=== PATIENT | female | born 1940 | race Caucasian/White ===

== ENCOUNTER 2018-03-07 12:57 | Emergency (ER) | payer OTHER ==
[2018-03-07 13:18] VITALS: TEMP 97.9; BMI 39.6
--- NOTE | 2018-03-07 13:24 | PDOC ---
History of Present Illness - General Chief Complaint: Wound Stated Complaint: left hand cellulitis Time Seen by Provider: 03/07/18 13:24 History Source: Patient Exam Limitations: No Limitations - History of Present Illness Initial Comments: 03/07/18 13:35 This is a 77 year old female with a history of DMII, excema on Remacade, who presents with a one week history of worsening left hand redness, swelling, pain. Patient bumper her left hand/thumb area while moving a box last week, which became bruised and swollen. Patient went to [facility] and was prescribed keflex, now on day 6. She now has increased pain, worsening erythema and wrist swelling. She denies fever, chills, skin breakdown. She denies skin infections or MRSA history. PMH: DMII PSH: none Allergies; percocet 03/07/18 14:36 03/07/18 15:56 Past History - Past Medical History Allergies/Adverse Reactions: Allergies Allergy/AdvReac Type Severity Reaction Status Date / Time acetaminophen [From Percocet] Allergy Mild Rash Verified 03/07/18 12:59 oxycodone [From Percocet] Allergy Mild Rash Verified 03/07/18 12:59 Home Medications: Ambulatory Orders Aspirin 81 mg PO DAILY 03/07/18 Calcium Carbonate/Vitamin D3 [Calcium 500 + Vit D Caplet] 1,000 each PO DAILY Cephalexin [Keflex] 500 mg PO TID 03/07/18 Cetirizine HCl [Zyrtec -] 10 mg PO HS 03/07/18 Cholecalciferol (Vitamin D3) [Vitamin D] 2,000 unit PO DAILY 03/07/18 Clindamycin [Cleocin -] 600 mg PO Q8H 7 Days #21 capsule 03/07/18 Fenofibrate Nanocrystallized [Fenofibrate] 145 mg PO HS 03/07/18 Folic Acid 1 mg PO DAILY 03/07/18 Infliximab [Remicade 100MG Vial] 100 mg IV ASDIR 03/07/18 Losartan Potassium 50 mg PO HS 03/07/18 Methotrexate [Mexate -] 2.5 mg PO WEEKLY 03/07/18 Multivit-Min/Iron/Folic/Lutein [Centrum Silver Women Tablet] 1 each PO DAILY 03/14 [place]-3S/Dha/Epa/Fish Oil [Fish Oil 1,200 mg Softgel] 1 each PO DAILY 03/07/18 Prevagen 1 tab 03/07/18 Pyridoxine HCl (B-6) [Vitamin B6] 100 mg PO ASDIR 03/07/18 Ubidecarenone [Coq-10] 200 mg PO DAILY 03/07/18 metFORMIN XR [Glucophage *Xr* -] 500 mg PO BID 03/07/18 COPD: No Diabetes: Yes HTN: Yes Hypercholesterolemia: Yes Other medical history: psoriasis - Suicide/Smoking/Psychosocial Hx Smoking History: Former smoker Have you smoked in the past 12 months: No If you are a former smoker, when did you quit?: 31 years ago Information on smoking cessation initiated: No Hx Alcohol Use: No Drug/Substance Use Hx: No Substance Use Type: None Review of Systems - Review of Systems Able to Perform ROS?: Yes Is the patient limited Yi proficient: No Constitutional: No: Chills, Diaphoresis, Fever HEENTM: No: Blurred Vision Respiratory: No: Cough, Shortness of Breath Cardiac (ROS): Yes: Edema. No: Chest Pain ABD/GI: No: Abdominal Distended Musculoskeletal: Yes: Joint Pain (left wrist). No: Back Pain, Muscle Pain, Muscle Weakness Integumentary: Yes: Bruising, Change in Color, Erythema (left wrist) Neurological: No: Headache, Numbness, Paresthesia, Tingling, Weakness *Physical Exam - Vital Signs Last Vital Signs Temp Pulse Resp BP Pulse Ox 97.9 F 96 H 18 143/78 96 03/07/18 13:01 03/07/18 13:01 03/07/18 13:01 03/07/18 13:01 03/07/18 13:01 - Physical Exam General Appearance: Yes: Appropriately Dressed Respiratory/Chest: positive: Lungs Clear, Normal Breath Sounds Cardiovascular: positive: Regular Rhythm, Regular Rate, S1, S2 Musculoskeletal: positive: Decreased Range of Motion (left wrist due to pain) Extremity: positive: Other (left hand warmth, erythema, edema, rednessextending up left arm, very tender) ED Treatment Course - LABORATORY CBC & Chemistry Diagram: 03/07/18 14:18 03/07/18 14:18 Medical Decision Making - Medical Decision Making 03/07/18 14:43 This is a 77 year old female with a history of DMII; who presents with failed outpatient antibiotics for left hand cellulitis. Will work up for sepsis. Add antibiotic coverage for MRSA. #left hand cellulitis: -cbc, bmp, lactic acid, blood cultures, -1gm vancomycin 03/07/18 15:53 -wbc wnl; vitals stable -call placed to ID, Dr. Davis; to discuss nee for inpatient antibiotics. -no need for inpatient antibiotics at this time -will prescribe coverage for MRSA, clindamycin 600tid x7 days -patient instructed to return to ER or see primary in 24hrs to re evaluate cellulitis, I outlined region of erythema -follow up with primary; return instructions for worsening symptoms 03/07/18 16:23 *DC/Admit/Observation/Transfer Diagnosis at time of Disposition: Failure of outpatient treatment Cellulitis Qualifiers: Site of cellulitis: other site Qualified Code(s): L03.818 - Cellulitis of other sites Diagnosis at time of Disposition: (Ruled Out): Cellulitis and abscess of hand - Discharge Dispostion Disposition: TRANSFER ACUTE CARE/OTHER HOSP Condition at time of disposition: Stable Decision to Admit order: No - Referrals - Patient Instructions Printed Discharge Instructions: DI for Cellulitis -- Adult Additional Instructions: Marcia Arely, you hvae been diagnosed with hand cellulitis. We have prescribed you a new antibiotic, clindamycin. Please take as prescribed. We request that you return to the emergency room or your primary physician in 24hrs to re evaluate your hand. If you experience any worsening of symptoms including fevers , chills, worsening swelling, redness or pain, please return again to the emergency room. - Post Discharge Activity
[2018-03-07] MEDS ORDERED: VANCOMYCIN 1 GRAM (PRE-DOCKED) 1,000 MG/250 ML BAG IVPB ONE (13:42)
[2018-03-07] MEDS ORDERED: VANCOMYCIN 1,000 MG VIAL (RESTRICTED TO ID ONLY) ONE (13:43)
[2018-03-07 14:50] LABS: BASO % 0.6 % (0-2.0); EOS % 2.1 % (0-4.5); HEMATOCRIT 43.4 % (32.4-45.2); HEMOGLOBIN 14.5 GM/dl (10.7-15.3); MCH 32.7 pg (25.7-33.7); MCHC 33.4 g/dl (32.0-36.0); MEAN CELL VOLUME 97.8 fl (80-96); MEAN PLT VOLUME 7.9 fl (7.5-11.1); MONO % 11.1 % (3.8-10.2); NEUT % 65.2 % (42.8-82.8); PLATELET COUNT 368 K/MM3 (134-434); RBC 4.44 M/mm3 (3.60-5.2); RDW 14.5 % (11.6-15.6); WHITE BLOOD COUNT 9.3 K/mm3 (4.0-10.8)
[2018-03-07 14:54] LABS: URINE APPEARANCE Clear; URINE BILIRUBIN Negative (NEGATIVE); URINE COLOR Yellow; URINE GLUCOSE (UA) Negative (NEGATIVE); URINE KETONE Negative (NEGATIVE); URINE LEUK ESTERASE Negative (NEGATIVE); URINE NITRITE Negative (NEGATIVE); URINE PROTEIN Negative (NEGATIVE); URINE UROBILINOGEN 0.2 (0.2-1.0)
[2018-03-07 15:11] LABS: BLOOD UREA NITROGEN 19 mg/dl (7-18); CHLORIDE 100 mmol/L (98-107); CREATININE 0.8 mg/dl (0.6-1.3); GLUCOSE,RANDOM 94 mg/dl (74-106); SODIUM 130 mmol/L (136-145)
[2018-03-07 15:12] LABS: ANION GAP 8 MMOL/L (8-16); CALCIUM 10.8 mg/dl (8.4-10.2); CO2 22 mmol/L (22-28)
[2018-03-07 16:00] VITALS: BP 141/82; PULSE 93
--- NOTE | 2018-03-07 16:28 | PDOC ---
Attending Attestation - Resident Resident Name: Angeline Wilson - ED Attending Attestation I have performed the following: I have examined & evaluated the patient, The case was reviewed & discussed with the resident, I agree w/resident's findings & plan, Exceptions are as noted - HPI HPI: 03/07/18 16:40 Cellulitis of the left hand, worsening despite therapy with Keflex. Patient is a [id number] diabetic, being treated for psoriasis with Remicade, last dose 2 weeks ago. No fever/chills fatigue, malaise or other sign of systemic infection or sepsis. Taking by mouth fluids and food well. - Physicial Exam PE: 03/07/18 16:42 Physical exam: Afebrile, vital signs normal Erythema induration of the dorsum of the left hand extending several centimeters above the left wrist. Mild erythema, minimal tenderness, minimal warmth. Full flexion and extension of the digits without pain. Good capillary refill. Pulses intact. No distal sensory or motor deficits. - Medical Decision Making 03/07/18 16:26 Impression: Cellulitis, worsening despite antibiotic therapy. More susceptible to infection because of diabetes, psoriasis, and therapy with biologic. However , no sign at present of systemic toxicity or sepsis Plan: Discussed admission to the hospital for intravenous therapy because of risk factors. Patient declined admission. To discuss outpatient therapy and close follow-up with infectious disease specialist Spoke to Dr. Davis by phone, infectious disease consult. The case was discussed at length, including the patient's diabetes, psoriasis, Remicade therapy, and failure of Keflex to improve infection. Suggested admission for IV vancomycin therapy, but if the patient was resistant recommended dose of IV vancomycin now and continue clindamycin as an outpatient with close follow-up and reevaluation. Dose of intravenous vancomycin administered. Continue on by mouth clindamycin. Recheck in 24 hours. Patient understands and agrees to close follow-up. This was reinforced with her daughter, who is present as well. 03/07/18 16:43
[2018-03-07 16:39] LABS: POTASSIUM 4.2 mmol/L (3.5-5.1)
[2018-03-07] MEDS ORDERED: CLINDAMYCIN HCL 300 MG CAPSULE PO ONE (16:52)
[2018-03-07] MEDS ORDERED: CLINDAMYCIN HCL 150 MG CAPSULE (FP) ONE (16:53)
== END 2018-03-07 17:02 | disposition home or self-care (01) ==
LOC: FER 12:57
DX: L03.818 Cellulitis of other sites (principal); E11.9 Type 2 diabetes mellitus without complications; I10 Essential (primary) hypertension; Z87.891 Personal history of nicotine dependence; E78.00 Pure hypercholesterolemia, unspecified
CPT/HCPCS: 36415; 80048; 81003; 83605; 85025; 87040; 87086; 99283-25

== ENCOUNTER 2018-03-12 12:50 | Emergency (ER) | payer OTHER, MEDICARE ==
[2018-03-12 13:22] VITALS: BP 136/75; TEMP 98.7; BMI 39.5
--- NOTE | 2018-03-12 15:55 | PDOC ---
History of Present Illness - History of Present Illness Initial Comments: 03/12/18 16:09 This is a 77 year old female with a significant past medical history of psoriasis, Type II diabetic, HTN, and HLD, who presents to the emergency department today for re-evaluation of cellulitis. Pt came to the ER on 03/07/18 , where she was diagnosed with cellulitis on the dorsal aspect of her left hand and was discharged home with Clindamycin. Patient then followed up with her PCP , who recommended she remained on the course of antibiotics. She has been on the antibiotic for 6 days now. Pt states that the redness and swelling have improved on the antibiotics but have not resolved completely. She denies any F/ C. Denies any worsening pain. Denies nausea or vomiting. Denies LUE pain. Denies focal weakness or paresthesia. <Ben Tapia - Last Filed: 03/12/18 17:38> <Lila Espinoza - Last Filed: 03/12/18 18:23> - General Chief Complaint: Revisit,Wound Recheck Stated Complaint: LEFT HAND CELLULITIS Time Seen by Provider: 03/12/18 13:25 Past History - Past Medical History COPD: No Diabetes: Yes HTN: Yes Hypercholesterolemia: Yes Other medical history: CELLULITIS OF THE LEFT HAND - Suicide/Smoking/Psychosocial Hx Smoking History: Former smoker Have you smoked in the past 12 months: No If you are a former smoker, when did you quit?: 31 years ago Information on smoking cessation initiated: No Hx Alcohol Use: No Drug/Substance Use Hx: No Substance Use Type: None <Ben Tapia - Last Filed: 03/12/18 17:38> <Lila Espinoza - Last Filed: 03/12/18 18:23> - Past Medical History Allergies/Adverse Reactions: Allergies Allergy/AdvReac Type Severity Reaction Status Date / Time acetaminophen [From Percocet] Allergy Mild Rash Verified 03/07/18 12:59 oxycodone [From Percocet] Allergy Mild Rash Verified 03/07/18 12:59 Home Medications: Ambulatory Orders Aspirin 81 mg PO DAILY 03/07/18 Calcium Carbonate/Vitamin D3 [Calcium 500 + Vit D Caplet] 1,000 each PO DAILY Cephalexin [Keflex] 500 mg PO TID 03/07/18 Cetirizine HCl [Zyrtec -] 10 mg PO HS 03/07/18 Cholecalciferol (Vitamin D3) [Vitamin D] 2,000 unit PO DAILY 03/07/18 Clindamycin [Cleocin -] 600 mg PO Q8H 7 Days #21 capsule 03/07/18 Fenofibrate Nanocrystallized [Fenofibrate] 145 mg PO HS 03/07/18 Folic Acid 1 mg PO DAILY 03/07/18 Infliximab [Remicade 100MG Vial] 100 mg IV ASDIR 03/07/18 Losartan Potassium 50 mg PO HS 03/07/18 Methotrexate [Mexate -] 2.5 mg PO WEEKLY 03/07/18 Multivit-Min/Iron/Folic/Lutein [Centrum Silver Women Tablet] 1 each PO DAILY 03/14 [place]-3S/Dha/Epa/Fish Oil [Fish Oil 1,200 mg Softgel] 1 each PO DAILY 03/07/18 Prevagen 1 tab 03/07/18 Pyridoxine HCl (B-6) [Vitamin B6] 100 mg PO ASDIR 03/07/18 Ubidecarenone [Coq-10] 200 mg PO DAILY 03/07/18 metFORMIN XR [Glucophage *Xr* -] 500 mg PO BID 03/07/18 Review of Systems - Review of Systems Comments:: 03/12/18 15:55 "GENERAL/CONSTITUTIONAL: No fever or chills. No weakness. HEAD, EYES, EARS, NOSE AND THROAT: No change in vision. No ear pain or discharge. No sore throat. CARDIOVASCULAR: No chest pain, no shortness of breath, no loss of consciousness RESPIRATORY: No cough, wheezing, or hemoptysis. GASTROINTESTINAL: No nausea, vomiting, diarrhea or constipation. GENITOURINARY: No dysuria, frequency, or change in urination. MUSCULOSKELETAL: No joint or muscle swelling or pain. No neck or back pain. SKIN: + redness and swelling to L hand NEUROLOGIC: No vertigo, no change in strength/sensation. ENDOCRINE: No increased thirst. No abnormal weight change. HEMATOLOGIC/LYMPHATIC: No anemia, easy bleeding, or history of blood clots. ALLERGIC/IMMUNOLOGIC: No hives or skin allergy. <Ou,Ben - Last Filed: 03/12/18 17:38> *Physical Exam - Vital Signs Last Vital Signs Temp Pulse Resp BP Pulse Ox 98.7 F 96 H 18 136/75 94 L 03/12/18 12:58 03/12/18 12:58 03/12/18 12:58 03/12/18 12:58 03/12/18 12:58 - Physical Exam Comments: 03/12/18 15:55 "GENERAL: Awake, alert, and fully oriented, in no acute distress. HEAD: No signs of trauma EYES: PERRLA, EOMI, sclera anicteric, conjunctiva clear ENT: Auricles normal inspection, hearing grossly normal, nares patent, oropharynx clear without exudates. Moist mucosa NECK: Nontender, no stepoffs, Normal ROM, supple, no lymphadenopathy, JVD, or masses LUNGS: Breath sounds equal, clear to auscultation bilaterally. No wheezes, and no crackles HEART: Regular rate and rhythm, normal S1 and S2, no murmurs, rubs or gallops ABDOMEN: Soft, nontender, normoactive bowel sounds. No guarding, no rebound. No masses EXTREMITIES: Normal range of motion, no edema. No clubbing or cyanosis. No cords, erythema, or tenderness NEUROLOGICAL: Cranial nerves II through XII intact. 5/5 strength and sensation in all extremities, Normal speech, normal gait, normal cerebellar function SKIN: + Mild erythema and edema to dorsum of L hand <Ben Tapia - Last Filed: 03/12/18 17:38> - Vital Signs Last Vital Signs Temp Pulse Resp BP Pulse Ox 98.7 F 97 H 18 136/75 96 03/12/18 12:58 03/12/18 16:15 03/12/18 12:58 03/12/18 12:58 03/12/18 16:15 <Lila Espinoza - Last Filed: 03/12/18 18:23> Medical Decision Making - Medical Decision Making 03/12/18 15:50 77 F with cellulitis of her L hand, presenting to ED for re-evaluation. Pt with persistent swelling and mild erythema, but appears to be improving on her current regimen. Pt denies any progression of the infection while on the Clindamycin. No systemic symptoms. I offered pt inpt admission for IV abx, but pt refusing, stating that she feels that the infection is getting better on the oral abx. - Continue current abx regimen - Strict return precautions Pt is well appearing, with normal vitals. Clinically stable for DC at this time. I discussed the physical exam findings, ancillary test results and final diagnoses with the patient. I answered all of the patient's questions. The patient was satisfied with the care received and felt comfortable with the discharge plan and treatment plan. The patient agrees to follow up with the primary care physician within 24-72 hours. <Ben Tapia - Last Filed: 03/12/18 17:38> *DC/Admit/Observation/Transfer - Attestations Physician Attestion: 03/12/18 16:09 I, Dr. Ben Tapia MD, attest that this document has been prepared under my direction and personally reviewed by me in its entirety. I further attest, that it accurately reflects all work, treatment, procedures and medical decision -making performed by me. <Ben Tapia - Last Filed: 03/12/18 17:38> - Attestations Scribe Attestion: 03/12/18 16:40 Documentation prepared by RICO Bird, acting as auditor medical claims for Ben Tapia MD/. <Lila Espinoza - Last Filed: 03/12/18 18:23> Diagnosis at time of Disposition: Cellulitis - Discharge Dispostion Disposition: HOME Condition at time of disposition: Good - Referrals Referrals: Dylon Franklin MD [Staff Physician] - - Patient Instructions Printed Discharge Instructions: DI for Cellulitis -- Adult Additional Instructions: Continue taking your antibiotics as prescribed. If at any point you begin to experience worsening redness, swelling, pain, fevers, or any other concerning symptoms, return to the ER immediately. If you continue to have redness or swelling even after you finish your antibiotics, return to the ER. Otherwise, follow up with our hand specialist within 1 week. Call the number provided to make an appointment.
[2018-03-12 16:15] VITALS: PULSE 97
== END 2018-03-12 16:20 | disposition home or self-care (01) ==
LOC: FER 12:50
DX: L03.114 Cellulitis of left upper limb (principal); E11.9 Type 2 diabetes mellitus without complications; I10 Essential (primary) hypertension; E78.5 Hyperlipidemia, unspecified; Z87.891 Personal history of nicotine dependence
CPT/HCPCS: 99281-25